=== PATIENT | male | born 1990 | race Caucasian/White ===

== ENCOUNTER 2024-09-14 10:47 | Outpatient (CLI) | payer BC, SELFPAY ==
--- NOTE | 2024-09-14 10:56 | XR_ITS ---
FINAL REPORT CLINICAL HISTORY: Rt hip pain, nki COMPARISON: None FINDINGS: AP and frog leg views of the right hip were obtained, with an AP view of the pelvis. There is no acute fracture or dislocation. Joint space is preserved. Soft tissues are unremarkable. IMPRESSION: No acute osseous abnormality of the right hip. Reviewed, Interpreted and Dictated by Yenni Lutz MD Transcribed by Shivani Martínez Authenticated and [facility]
--- NOTE | 2024-09-14 11:07 | XR_ITS ---
FINAL REPORT CLINICAL HISTORY: Rt shoulder pain, nki COMPARISON: None FINDINGS: 3 views of the right shoulder were obtained. There is no fracture or dislocation. Mild acromioclavicular degenerative changes present. Soft tissues are unremarkable. IMPRESSION: No acute osseous abnormality of the right shoulder. Mild acromioclavicular degenerative changes present. Reviewed, Interpreted and Dictated by Yenni Lutz MD Transcribed by Shivani Martínez Authenticated and [facility]
== END 2024-09-14 23:59 | disposition home or self-care (01) ==
LOC: RAD 10:52
PROVIDERS: PCP Nurse Practitioner; Visit Provider Nurse Practitioner
DX: M25.551 Pain in right hip (principal); M25.511 Pain in right shoulder
CPT/HCPCS: 73030; 73502

== ENCOUNTER → 2025-05-29 07:45 | Outpatient (CLI) | payer BC, SELFPAY ==
--- OUTSIDE RECORDS SUMMARY | 2025-05-29 07:47 | XMS_ITS | Data Portability ---
Author Organization [facility] Address [address] [place] [address] Assessment Encounter Date Assessment Date Assessment LastModified by Organization Details LastModified Time 05/09/2021 05/09/2021 Increasing losartan 50 mg to 100 mg p.o. daily for improved management of blood pressure today Continue BuSpar 10 mg twice daily for anxiety Administer flu vaccine today Encourage 3-month follow-up for check on the blood pressure Call or return to clinic sooner if needed [email or web address] Not available 05/09/2021 16:33:09 11/20/2021 11/20/2021 -Medications were reviewed and any necessary updates and renewals were made, patient instructed to complete as prescribed. -The potential side effects of medications were discussed. -Counseling was done on care goals and ways to prevent future hospitalizatio ns. -Further treatment per orders listed below. Not available 11/20/2021 15:23:42 Plan of Treatment Reminders Order Date Submit Date Provider Last Modified By Organization Details Last Modified Time Details Appointments None recorded. Lab lipid panel, serum 2023 024 [facility], [address], [address], [place], [address], 4 07:39:17 CMP, serum or plasma 2023 024 [facility], [address], [address] [address], [place], [address], 4 07:39:16 CBC w/ auto diff 2023 024 [facility], [address], [place] [address], [place], [address], 4 07:39:15 vitamin D, 25-hydroxy, total, serum 2023 024 [facility], [address], [place] [address], [place], [address], 4 07:39:19 HbA1c (hemoglobin A1c), blood 2023 024 [facility], [address], [address], [place], [address], 4 07:39:18 vitamin B12 + folate, serum or blood 2023 024 [facility], [address], [place] [address], [place], [address], 4 07:39:18 TSH + free T4, serum 2023 024 [facility], [address], [place] [address], [place], [address], 4 07:39:14 lipid panel, serum 2021 022 [facility], [address], [place] [address], [place], [address], 2 09:38:58 CMP, serum or plasma 2021 022 [facility], [address], [place] [address], [place], [address], 2 09:38:58 TSH + free T4, serum 2021 022 [facility], [address], [place] [address], [place], [address], 2 09:38:56 HbA1c (hemoglobin A1c), blood 2021 022 [facility], [address], [address], [place], [address], 2 09:38:59 CBC w/ auto diff 2021 [facility], [address], [address] [address], [place], [address], 2 09:38:57 Referral None recorded. Procedures None recorded. Surgeries None recorded. Imaging None recorded. Medication Orders atorvastati n 40 mg tablet [address] [facility], [address] [place] [address], [place], [id number], 4 10:46:18 omeprazole 40 mg capsule,del ayed release [address] [facility] [address] [facility], [address] [place] [address], [id number], 4 10:46:24 losartan 50 mg tablet [address] [facility] [address] [facility], [address] [place] [address], [id number], 4 10:46:21 sucralfate 1 gram tablet [address] [facility] [address] [facility], [address] [place] [address], [place], [place], [id number], 4 10:46:27 atorvastati n 40 mg tablet [address] [facility] [address] [facility], [address] [place] [address], [id number], 4 10:46:18 buspirone 10 mg tablet [email or web address] [place] [address] Pharmacy, [address] [place] [address], [place], [id number], 2 14:17:00 omeprazole 40 mg capsule,del ayed release [email or web address] [facility] [address] [facility], [address] [place] [address], NANDA Guzman, [id number], 4 10:46:24 losartan 50 mg tablet [email or web address] [facility], [address] [place] [address], NANDA Guzman, [id number], 4 10:46:21 omeprazole 40 mg capsule,del ayed release [address] [facility] [address] [facility], [address] [place] [address], NANDA Guzman, [id number], 4 10:46:24 Wellbutrin XL 150 mg 24 hr tablet, extended release [email or web address] [facility] [address] [facility], [address] [place], [place] [address] [place], [id number], 2 08:13:06 sucralfate 1 gram tablet [address] [facility] [address] [facility], [address] [place], [place] [address] [place], [id number], 4 10:46:27 atorvastati n 40 mg tablet [email or web address] [facility] [address] [facility], [address] [place], [place] [address] [place], [id number], 4 10:46:18 losartan 100 mg tablet 2020 021 [facility], [address] [place] [address], NANDA Guzman, [id number], 2 08:39:36 omeprazole 40 mg capsule,del ayed release 2020 021 [facility], [address] [place] [address] [place], [id number], 4 10:46:24 buspirone 10 mg tablet 2020 021 [email or web address], [address] [place] [address] [place], [id number], 2 14:17:00 citalopram 40 mg tablet 2020 021 [facility], [address] [place], [place] [address] [place], [id number], 2 14:19:39 Patient TargetsNo targets recorded. Patient Instructions Encounter Date Encounter Id Patient Instructions Last Modified By Organization Details Last Modified Time 05/09/2021 [id number] influenza (flu) vaccine: care instructions [email or web address] Not available 05/09/2021 16:30:24 11/20/2021 [id number] body mass index: care instructions Not available 11/20/2021 15:57:27 learning about healthy weight Not available 11/20/2021 15:57:27 Alert to contact office if symptoms return Take medications as directed Discussed risks and benefits; if develops any worsening, SI/HI, will seek tx mikel Not available 11/20/2021 16:02:22 01/22/2022 [id number] [facility]'s Guide to Preventive Health Care Not available 01/22/2022 08:34:55 learning about healthy weight Not available 01/22/2022 08:34:55 body mass index: care instructions Not available 01/22/2022 08:34:55 Congratulated on weight loss Will decrease losartan to 50 mg daily - having issues with fatigue Advised to spot check BP daily - If bp 140/upper 80's, call office, may need to increase to 75 mg daily Will call with results of labs when available Encouraged to maintain current healthy lifestyle habits - exercising at least 3 days per week and following low carb diet Not available 01/22/2022 08:40:01 05/26/2022 [id number] Advised to take medications as directed To call office for questions, concerns or issues. Not available 05/26/2022 14:26:20 02/08/2024 [id number] learning about healthy weight Not available 02/08/2024 14:00:04 body mass index: care instructions Not available 02/08/2024 14:00:04 Men's Guide to Preventive Health Care Not available 02/08/2024 14:00:04 Advised to continue current exercise regimen and dietary restrictions Will call with results of labs once available To call office for questions, concerns or issues Not available 02/08/2024 10:59:03 Reason for Referral None Reported. Results Created Date Observation Date Name Description Value Unit Range Abnormal Flag Note LastModifiedBy Organization Detail LastModifiedTime 01/23/2001/23/2022 TSH+F REE T4 TSH 1.340 uIU/m L 0.450- 4.500 Not Available [facility] ([facility]) [address] [place], [address], 01/23/2022 09:38:56 01/23/20 22 01/23/2022 TSH+F REE T4 T4,free(dire ct) 1.44 NG/dL 0.82-1 .77 Not Available [facility] ([facility]) [address] [place], [address], 01/23/2022 09:38:56 01/23/20 22 01/23/2022 CBC WITH DIFFE ANTONELLATI AL/PL ATELE T WBC 8.0 x10e3 /uL 3.4-10 .8 Not Available [facility] ([facility]) [address] [place], [address], 01/23/2022 09:38:57 01/23/20 22 01/23/2022 CBC WITH DIFFE RENTI AL/PL ATELE T RBC 4.96 x10e6 /uL 4.14-5 .80 Not Available [facility] ([facility]) [address] [facility], [place], [address], 01/23/2022 09:38:57 01/23/20 22 01/23/2022 CBC WITH DIFFE RENTI AL/PL ATELE T hemoglobin 14.7 g/dL 13.0-1 7.7 Not Available [facility] ([facility]) [address] [facility], [place], [address], 01/23/2022 09:38:57 01/23/20 22 01/23/2022 CBC WITH DIFFE RENTI AL/PL ATELE T hematocrit 44.6 % 37.5-5 1.0 Not Available [facility] ([facility]) [address] [facility], [place], [address], 01/23/2022 09:38:57 01/23/20 22 01/23/2022 CBC WITH DIFFE RENTI AL/PL ATELE T MCV 90 fL 79-97 Not Available [facility] ([facility]) [address] [place], [address], 01/23/2022 09:38:57 01/23/20 22 01/23/2022 CBC WITH DIFFE RENTI AL/PL ATELE T MCH 29.6 pg 26.6-3 3.0 Not Available [facility] ([facility]) [address] [place], [address], 01/23/2022 09:38:57 01/23/20 22 01/23/2022 CBC WITH DIFFE RENTI AL/PL ATELE T MCHC 33.0 g/dL 31.5-3 5.7 Not Available [facility] ([facility]) [address] [place], [address], 01/23/2022 09:38:57 01/23/20 22 01/23/2022 CBC WITH DIFFE RENTI AL/PL ATELE T RDW 13.4 % 11.6-1 5.4 Not Available [facility] ([facility]) [address] [facility], [place], [address], 01/23/2022 09:38:57 01/23/20 22 01/23/2022 CBC WITH DIFFE RENTI AL/PL ATELE T platelets 250 x10e3 /uL 150-45 0 Not Available [facility] ([facility]) [address] [facility], [place], [address], 01/23/2022 09:38:57 01/23/20 22 01/23/2022 CBC WITH DIFFE RENTI AL/PL ATELE T neutrophils 67 % not estab. Not Available [facility] ([facility]) [address] [facility], [place], [address], 01/23/2022 09:38:57 01/23/20 22 01/23/2022 CBC WITH DIFFE RENTI AL/PL ATELE T lymphs 24 % not estab. Not Available [facility] ([facility]) [address] [facility], [place], [address], 01/23/2022 09:38:57 01/23/20 22 01/23/2022 CBC WITH DIFFE RENTI AL/PL ATELE T monocytes 7 % not estab. Not Available [facility] ([facility]) [address] [facility], [place], [address], 01/23/2022 09:38:57 01/23/20 22 01/23/2022 CBC WITH DIFFE RENTI AL/PL ATELE T eos 1 % not estab. Not Available [facility] ([facility]) [address] [facility], [place], [address], 01/23/2022 09:38:57 01/23/20 22 01/23/2022 CBC WITH DIFFE RENTI AL/PL ATELE T basos 1 % not estab. 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 0 Not Available [facility] ([facility]) [address] [facility], [place], [address], 01/23/2022 09:38:57 01/23/20 22 01/23/2022 CBC WITH DIFFE RENTI AL/PL ATELE T lymphs (absolute) 1.9 x10e3 /uL 0.7-3. 1 Not Available [facility] ([facility]) [address] [place], [address], 01/23/2022 09:38:57 01/23/20 22 01/23/2022 CBC WITH DIFFE RENTI AL/PL ATELE T monocytes(ab solute) 0.5 x10e3 /uL 0.1-0. 9 Not Available [facility] ([facility]) [address] [place], [address], 01/23/2022 09:38:57 01/23/20 22 01/23/2022 CBC WITH DIFFE RENTI AL/PL ATELE T eos (absolute) 0.1 x10e3 /uL 0.0-0. 4 Not Available [facility] ([facility]) [address] [place], [address], 01/23/2022 09:38:57 01/23/20 22 01/23/2022 CBC WITH DIFFE RENTI AL/PL ATELE T baso (absolute) 0.1 x10e3 /uL 0.0-0. 2 Not Available [facility] ([facility]) [address] [facility], [place], [address], 01/23/2022 09:38:57 01/23/20 22 01/23/2022 CBC WITH DIFFE RENTI AL/PL ATELE T immature granulocytes 0 % not estab. Not Available [facility] ([facility]) [address] [facility], [place], [address], 01/23/2022 09:38:57 01/23/20 22 01/23/2022 CBC WITH DIFFE RENTI AL/PL ATELE T immature grans (abs) 0.0 x10e3 /uL 0.0-0. 1 Not Available [facility] ([facility]) [address] [facility], [place], [address], 01/23/2022 09:38:57 01/23/20 22 01/23/2022 CBC WITH DIFFE RENTI AL/PL ATELE T NRBC [employer]WORK SUPERVISOR Not Available [facility] ([facility]) [address] [facility], [place], [address], 01/23/2022 09:38:57 01/23/20 22 01/23/2022 CBC WITH DIFFE RENTI AL/PL ATELE T hematology comments: STONEWORK SUPERVISOR Not Available [facility] ([facility]) [address] [place], [address], 01/23/2022 09:38:57 01/23/20 22 01/23/2022 COMP. METAB OLIC PANEL (14) glucose 74 mg/dL 65-99 Not Available [facility] ([facility]) [address] [place], [address], 01/23/2022 09:38:58 01/23/20 22 01/23/2022 COMP. METAB OLIC PANEL (14) BUN 12 mg/dL 6-20 Not Available [facility] ([facility]) [address] [place], [address], 01/23/2022 09:38:58 01/23/20 22 01/23/2022 COMP. METAB OLIC PANEL (14) creatinine 0.91 mg/dL 0.76-1 .27 Not Available [facility] ([facility]) [address] [place], [address], 01/23/2022 09:38:58 01/23/20 22 01/23/2022 COMP. METAB OLIC PANEL (14) eGFR 116 mL/mi n/1.7 3 >59 Not Available [facility] ([facility]) [address] [place], [address], 01/23/2022 09:38:58 01/23/20 22 01/23/2022 COMP. METAB OLIC PANEL (14) BUN/creatini ne ratio 13 9-20 Not Available [facility] ([facility]) [address] [place], [address], 01/23/2022 09:38:58 01/23/20 22 01/23/2022 COMP. METAB OLIC PANEL (14) sodium 140 mmol/ L 134-14 4 Not Available [facility] ([facility]) [address] [place], [address], 01/23/2022 09:38:58 01/23/20 22 01/23/2022 COMP. METAB OLIC PANEL (14) potassium 4.3 mmol/ L 3.5-5. 2 Not Available [facility] ([facility]) [address] [place], [address], 01/23/2022 09:38:58 01/23/20 22 01/23/2022 COMP. METAB OLIC PANEL (14) chloride 100 mmol/ L 96-106 Not Available [facility] ([facility]) [address] [place], [address], 01/23/2022 09:38:58 01/23/20 22 01/23/2022 COMP. METAB OLIC PANEL (14) carbon dioxide, total 23 mmol/ L 20-29 Not Available [facility] ([facility]) [address] [facility], [place], [address], 01/23/2022 09:38:58 01/23/20 22 01/23/2022 COMP. METAB OLIC PANEL (14) calcium 9.0 mg/dL 8.7-10 .2 Not Available [facility] ([facility]) [address] [facility], [place], [address], 01/23/2022 09:38:58 01/23/20 22 01/23/2022 COMP. METAB OLIC PANEL (14) protein, total 6.5 g/dL 6.0-8. 5 Not Available [facility] ([facility]) [address] [facility], [place], [address], 01/23/2022 09:38:58 01/23/20 22 01/23/2022 COMP. METAB OLIC PANEL (14) albumin 4.3 g/dL 4.1-5. 2 Not Available [facility] ([facility]) [address] [facility], [place], [address], 01/23/2022 09:38:58 01/23/20 22 01/23/2022 COMP. METAB OLIC PANEL (14) globulin, total 2.2 g/dL 1.5-4. 5 Not Available [facility] ([facility]) [address] [facility], [place], [address], 01/23/2022 09:38:58 01/23/20 22 01/23/2022 COMP. METAB OLIC PANEL (14) A/G ratio 2.0 1.2-2. 2 Not Available [facility] ([facility]) [address] [facility], [place], [address], 01/23/2022 09:38:58 01/23/20 22 01/23/2022 COMP. METAB OLIC PANEL (14) bilirubin, total 1.2 mg/dL 0.0-1. 2 Not Available [facility] ([facility]) [address] [place], [address], 01/23/2022 09:38:58 01/23/20 22 01/23/2022 COMP. METAB OLIC PANEL (14) alkaline phosphatase 67 IU/L 44-121 Not Available [facility] ([facility]) [address] [place], [address], 01/23/2022 09:38:58 01/23/20 22 01/23/2022 COMP. METAB OLIC PANEL (14) AST (SGOT) 25 IU/L 0-40 Not Available [facility] ([facility]) [address] [place], [address], 01/23/2022 09:38:58 01/23/20 22 01/23/2022 COMP. METAB OLIC PANEL (14) ALT (SGPT) 21 IU/L 0-44 Not Available [facility] ([facility]) [address] [place], [address], 01/23/2022 09:38:58 01/23/20 22 01/23/2022 LIPID PANEL cholesterol, total 105 mg/dL 100-19 9 Not Available [facility] ([facility]) [address] [place], [address], 01/23/2022 09:38:58 01/23/20 22 01/23/2022 LIPID PANEL triglyceride s 66 mg/dL 0-149 Not Available [facility] ([facility]) [address] [place], [address], 01/23/2022 09:38:58 01/23/20 22 01/23/2022 LIPID PANEL HDL cholesterol 32 mg/dL >39 below low normal Not Available [facility] ([facility]) [address] [place], [address], 01/23/2022 09:38:58 01/23/20 22 01/23/2022 LIPID PANEL VLDL cholesterol chinmay 14 mg/dL 5-40 Not Available [facility] ([facility]) [address] [place], [address], 01/23/2022 09:38:58 01/23/20 22 01/23/2022 LIPID PANEL LDL chol calc ([facility]) 59 mg/dL 0-99 Not Available [facility] ([facility]) [address] [place], [address], 01/23/2022 09:38:58 01/23/20 22 01/23/2022 LIPID PANEL comment: [employer]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 6 Predi abete s: 5.7 - 6.4 Diabe stan: >6.4 Glyce tony contr ol for adult s with diabe stan: <7.0 Not Available [facility] ([facility]) [address] [place], [address], 01/23/2022 09:38:59 02/08/20 24 02/09/2024 TSH+F REE T4 TSH 2.070 uIU/m L 0.450- 4.500 normal Not Available [facility] ([facility]) [address] [place], [address], 02/09/2024 07:39:14 02/08/2002/09/2024 TSH+F REE T4 T4,free(dire ct) 1.30 NG/dL 0.82-1 .77 normal Not Available [facility] ([facility]) [address] [place], [address], 02/09/2024 07:39:14 02/08/20 24 02/09/2024 CBC WITH DIFFE RENTI AL/PL ATELE T WBC 5.6 x10e3 /uL 3.4-10 .8 normal Not Available [facility] ([facility]) [address] [facility], [place], [address], 02/09/2024 07:39:15 02/08/20 24 02/09/2024 CBC WITH DIFFE RENTI AL/PL ATELE T RBC 4.49 x10e6 /uL 4.14-5 .80 normal Not Available [facility] ([facility]) [address] [place], [address], 02/09/2024 07:39:15 02/08/20 24 02/09/2024 CBC WITH DIFFE RENTI AL/PL ATELE T hemoglobin 14.1 g/dL 13.0-1 7.7 normal Not Available [facility] ([facility]) [address] [facility], [place], [address], 02/09/2024 07:39:15 02/08/20 24 02/09/2024 CBC WITH DIFFE RENTI AL/PL ATELE T hematocrit 43.0 % 37.5-5 1.0 normal Not Available [facility] ([facility]) [address] [place], [address], 02/09/2024 07:39:15 02/08/20 24 02/09/2024 CBC WITH DIFFE RENTI AL/PL ATELE T MCV 96 fL 79-97 normal Not Available [facility] ([facility]) [address] [place], [address], 02/09/2024 07:39:15 02/08/20 24 02/09/2024 CBC WITH DIFFE RENTI AL/PL ATELE T MCH 31.4 pg 26.6-3 3.0 normal Not Available [facility] ([facility]) [address] [place], [address], 02/09/2024 07:39:15 02/08/20 24 02/09/2024 CBC WITH DIFFE RENTI AL/PL ATELE T MCHC 32.8 g/dL 31.5-3 5.7 normal Not Available [facility] ([facility]) [address] [facility], [place], [address], 02/09/2024 07:39:15 02/08/20 24 02/09/2024 CBC WITH DIFFE RENTI AL/PL ATELE T RDW 12.5 % 11.6-1 5.4 Not Available [facility] ([facility]) [address] [facility], [place], [address], 02/09/2024 07:39:15 02/08/20 24 02/09/2024 CBC WITH DIFFE RENTI AL/PL ATELE T platelets 188 x10e3 /uL 150-45 0 normal Not Available [facility] ([facility]) [address] [facility], [place], [address], 02/09/2024 07:39:15 02/08/20 24 02/09/2024 CBC WITH DIFFE RENTI AL/PL ATELE T neutrophils 46 % not estab. normal Not Available [facility] ([facility]) [address] [facility], [place], [address], 02/09/2024 07:39:15 02/08/20 24 02/09/2024 CBC WITH DIFFE RENTI AL/PL ATELE T lymphs 43 % not estab. normal Not Available [facility] ([facility]) [address] [facility], [place], [address], 02/09/2024 07:39:15 02/08/20 24 02/09/2024 CBC WITH DIFFE RENTI AL/PL ATELE T monocytes 7 % not estab. normal Not Available [facility] ([facility]) [address] [facility], [place], [address], 02/09/2024 07:39:15 02/08/20 24 02/09/2024 CBC WITH DIFFE RENTI AL/PL ATELE T eos 3 % not estab. normal Not Available [facility] ([facility]) [address] [place], [address], 02/09/2024 07:39:15 02/08/20 24 02/09/2024 CBC WITH DIFFE RENTI AL/PL ATELE T basos 1 % not estab. normal Not Available [facility] ([facility]) [address] [facility], [place], [address], 02/09/2024 07:39:15 02/08/20 24 02/09/2024 CBC WITH DIFFE RENTI AL/PL ATELE T immature cells STONEWORK SUPERVISOR Not Available [facility] ([facility]) [address] [place], [address], 02/09/2024 07:39:15 02/08/20 24 02/09/2024 CBC WITH DIFFE RENTI AL/PL ATELE T neutrophils (absolute) 2.6 x10e3 /uL 1.4-7. 0 normal Not Available [facility] ([facility]) [address] [place], [address], 02/09/2024 07:39:15 02/08/20 24 02/09/2024 CBC WITH DIFFE RENTI AL/PL ATELE T lymphs (absolute) 2.4 x10e3 /uL 0.7-3. 1 normal Not Available [facility] ([facility]) [address] [place], [address], 02/09/2024 07:39:15 02/08/20 24 02/09/2024 CBC WITH DIFFE RENTI AL/PL ATELE T monocytes(ab solute) 0.4 x10e3 /uL 0.1-0. 9 normal Not Available [facility] ([facility]) [address] [place], [address], 02/09/2024 07:39:15 02/08/20 24 02/09/2024 CBC WITH DIFFE RENTI AL/PL ATELE T eos (absolute) 0.1 x10e3 /uL 0.0-0. 4 normal Not Available [facility] ([facility]) [address] [facility], [place], [address], 02/09/2024 07:39:15 02/08/20 24 02/09/2024 CBC WITH DIFFE RENTI AL/PL ATELE T baso (absolute) 0.1 x10e3 /uL 0.0-0. 2 normal Not Available [facility] ([facility]) [address] [facility], [place], [address], 02/09/2024 07:39:15 02/08/20 24 02/09/2024 CBC WITH DIFFE RENTI AL/PL ATELE T immature granulocytes 0 % not estab. Not Available [facility] ([facility]) [address] [facility], [place], [address], 02/09/2024 07:39:15 02/08/20 24 02/09/2024 CBC WITH DIFFE RENTI AL/PL ATELE T immature grans (abs) 0.0 x10e3 /uL 0.0-0. 1 Not Available [facility] ([facility]) [address] [facility], [place], [address], 02/09/2024 07:39:15 02/08/20 24 02/09/2024 CBC WITH DIFFE RENTI AL/PL ATELE T NRBC [employer]WORK SUPERVISOR Not Available [facility] ([facility]) [address] [facility], [place], [address], 02/09/2024 07:39:15 02/08/20 24 02/09/2024 CBC WITH DIFFE RENTI AL/PL ATELE T hematology comments: STONEWORK SUPERVISOR Not Available [facility] ([facility]) [address] [facility], [place], [address], 02/09/2024 07:39:15 02/08/20 24 02/09/2024 COMP. METAB OLIC PANEL (14) glucose 76 mg/dL 70-99 normal Not Available [facility] ([facility]) [address] [place], [address], 02/09/2024 07:39:16 02/08/20 24 02/09/2024 COMP. METAB OLIC PANEL (14) BUN 13 mg/dL 6-20 normal Not Available [facility] ([facility]) [address] [place], [address], 02/09/2024 07:39:16 02/08/20 24 02/09/2024 COMP. METAB OLIC PANEL (14) creatinine 0.94 mg/dL 0.76-1 .27 normal Not Available [facility] ([facility]) [address] [place], [address], 02/09/2024 07:39:16 02/08/20 24 02/09/2024 COMP. METAB OLIC PANEL (14) eGFR 110 mL/mi n/1.7 3 >59 normal Not Available [facility] ([facility]) [address] [place], [address], 02/09/2024 07:39:16 02/08/20 24 02/09/2024 COMP. METAB OLIC PANEL (14) BUN/creatini ne ratio 14 9-20 normal Not Available [facility] ([facility]) [address] [place], [address], 02/09/2024 07:39:16 02/08/20 24 02/09/2024 COMP. METAB OLIC PANEL (14) sodium 140 mmol/ L 134-14 4 normal Not Available [facility] ([facility]) [address] [place], [address], 02/09/2024 07:39:16 02/08/20 24 02/09/2024 COMP. METAB OLIC PANEL (14) potassium 4.3 mmol/ L 3.5-5. 2 normal Not Available [facility] ([facility]) [address] [place], [address], 02/09/2024 07:39:16 02/08/20 24 02/09/2024 COMP. METAB OLIC PANEL (14) chloride 101 mmol/ L 96-106 normal Not Available [facility] ([facility]) [address] [place], [address], 02/09/2024 07:39:16 02/08/20 24 02/09/2024 COMP. METAB OLIC PANEL (14) carbon dioxide, total 22 mmol/ L 20-29 normal Not Available [facility] ([facility]) [address] [place], [address], 02/09/2024 07:39:16 02/08/20 24 02/09/2024 COMP. METAB OLIC PANEL (14) calcium 9.2 mg/dL 8.7-10 .2 normal Not Available [facility] ([facility]) [address] [place], [address], 02/09/2024 07:39:16 02/08/20 24 02/09/2024 COMP. METAB OLIC PANEL (14) protein, total 6.8 g/dL 6.0-8. 5 normal Not Available [facility] ([facility]) [address] [place], [address], 02/09/2024 07:39:16 02/08/20 24 02/09/2024 COMP. METAB OLIC PANEL (14) albumin 4.6 g/dL 4.1-5. 1 normal Not Available [facility] ([facility] [address] [place], [address], 02/09/2024 07:39:16 02/08/20 24 02/09/2024 COMP. METAB OLIC PANEL (14) globulin, total 2.2 g/dL 1.5-4. 5 Not Available [facility] ([facility]) [address] [facility], [place], [address], 02/09/2024 07:39:16 02/08/20 24 02/09/2024 COMP. METAB OLIC PANEL (14) bilirubin, total 1.4 mg/dL 0.0-1. 2 above high normal Not Available [facility] ([facility]) [address] [place], [address], 02/09/2024 07:39:16 02/08/20 24 02/09/2024 COMP. METAB OLIC PANEL (14) alkaline phosphatase 50 IU/L 44-121 normal Not Available [facility] ([facility]) [address] [facility], [place], [address], 02/09/2024 07:39:16 02/08/20 24 02/09/2024 COMP. METAB OLIC PANEL (14) AST (SGOT) 38 IU/L 0-40 normal Not Available [facility] ([facility]) [address] [facility], [place], [address], 02/09/2024 07:39:16 02/08/20 24 02/09/2024 COMP. METAB OLIC PANEL (14) ALT (SGPT) 32 IU/L 0-44 normal Not Available [facility] ([facility]) [address] [facility], [place], [address], 02/09/2024 07:39:16 02/08/20 24 02/09/2024 LIPID PANEL cholesterol, total 172 mg/dL 100-19 9 normal Not Available [facility] ([facility]) [address] [place], [address], 02/09/2024 07:39:17 02/08/20 24 02/09/2024 LIPID PANEL triglyceride s 40 mg/dL 0-149 normal Not Available [facility] ([facility]) [address] [place], [address], 02/09/2024 07:39:17 02/08/20 24 02/09/2024 LIPID PANEL HDL cholesterol 55 mg/dL >39 normal Not Available [facility] ([facility]) [address] [place], [address], 02/09/2024 07:39:17 02/08/20 24 02/09/2024 LIPID PANEL VLDL cholesterol chinmay 8 mg/dL 5-40 Not Available [facility] ([facility]) [address] [place], [address], 02/09/2024 07:39:17 02/08/20 24 02/09/2024 LIPID PANEL LDL chol calc ([facility]) 109 mg/dL 0-99 above high normal Not Available [facility] ([facility]) [address] [place], [address], 02/09/2024 07:39:17 02/08/20 24 02/09/2024 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 Not Available [facility] ([facility]) [address] [place], [address], 02/09/2024 07:39:17 02/08/20 24 02/09/2024 HEMOG LOBIN A1C hemoglobin A1C 5.1 % 4.8-5. 6 normal Predi abete s: 5.7 - 6.4 Diabe stan: >6.4 Glyce tony contr ol for adult s with diabe stan: <7.0 Not Available [facility] ([facility]) [address] [facility], [place], [address], 02/09/2024 07:39:18 02/08/20 24 02/09/2024 VITAM IN D, 25-HY DROXY vitamin D, 25-hydroxy 78.7 NG/mL 30.0-1 00.0 Vitam in D defic iency has been defin ed by the Insti tute of Medic ine and an Endoc rine Socie ty pract ice guide line as a level of serum 25-OH vitam in D less than 20 ng/mL (1,2) . The Endoc rine Socie ty went on to furth er defin e vitam in D insuf ficie ncy as a level betwe en 21 and 29 ng/mL (2). 1. IOM (Inst itute of Medic ine). 2009. Dieta ry refer ence intak es for calci um and D. Arlene smith DC: The Natio nal [facility] Press . 2. Atilio springer MF, Shivam boo NC, Hyacinth off-F lissettear i ARDON, et al. Evalu ation , treat ment, and preve ntion of vitam in D defic iency : an Endoc rine Socie ty clini chinmay pract ice guide line. JCEM. 2010; 96(7) :1911 -30. Not Available [facility] ([facility]) [address] [facility], [place], [address], 02/09/2024 07:39:19 Result Notes None recorded. Problems Name Problem SNOMED Code Status Onset Date Resolution Date Notes Provider Name and Address Organization Details Recorded Time Hypertensi ve disorder 59715688 Active 2016 NANDA Sloan - [facility] 7 14:05:55 Epigastric pain 99604816 Completed 201602/04/2019 NANDA Bonilla - [facility] 9 15:08:59 Chronic depression 970095197 Active 2017 Leta Rust null, [place] - [facility] 8 16:29:27 Gastroesop hageal reflux disease without esophagiti s 604669995 Active 2018 Crystal Brayan null, [place] - [facility] 9 15:09:30 Chronic anxiety 512871800 Active 2018 Leta Rust null[place] - [facility] 9 15:34:52 Mixed hyperlipid emia 175564478 Completed 201902/08/2024 Crystal Brayan null, [place] - [facility] 4 10:47:54 Gastric ulcer 777718724 Active 2021 Xuan Kidd, INFORMATION SYSTEMS AUDIT MANAGER [address], [place], [address] , [place] - [facility] 2 15:48:13 Mixed anxiety and depressive disorder 137265601 Active 2021 Xuan Kidd APRN [address], [place], [address] , [place] - [facility] 2 15:50:35 Essential hypertensi on 00340528 Active 2021 Xuan Kidd, INFORMATION SYSTEMS AUDIT MANAGER [address], [place], [address] , [place] - [facility] 2 08:31:27 Problem Notes None recorded. Procedures Surgical History Date Name Laterality Status Provider Name and Address Organization Details Recorded Time 11/21/19 22 Medication Reconcilliation completed Crystal Brayan [place] - [facility] 11/20/2021 15:23:42 02/03/20 20 Diastolic B/P greater than or equal to 90 mm Hg completed Crystal Brayan [place] - [facility] 02/03/2020 14:09:24 02/03/20 20 Systolic B/P greater than or equal to 140 mm Hg completed Crystal Brayan [place] - [facility] 02/03/2020 14:09:20 08/08/19 20 Diastolic B/P 80-89 mm Hg completed Crystal Brayan [place] - [facility] 08/08/2019 14:03:18 08/08/19 20 Systolic B/P greater than or equal to 140 mm Hg completed Crystal Brayan [place] - [facility] 08/08/2019 14:03:15 06/22/19 00 tonsilectomy/adeno ids completed Aniya House [place] - [facility] 02/19/2017 10:59:43 Imaging Results None recorded. Procedure Notes None recorded. Medical Equipment None Reported. Allergies Allergen ID Allergen Name Allergen Category Reaction Reaction Severity Criticality Documentation Date Start Date Code Code System Note Provider Name and Address Organization Details Recorded Time 835684 Wellbutri n medicatio n other Not available Not available 01/22/2022 56509 RxNorm suici disha Clarissa bray, [place] - [facility] 2 08:13:55 52716 Product containin g angiotens in-conver ting enzyme inhibitor (product) medicatio n cough Not available Not available 04/16/2017 76724 009 SNOMED Leta Rust [facility], [place] - [facility] 7 14:36:40 Medications Name Sig Start Date Stop Date Status Note LastModified by Organization Details LastModified Time losartan 50 mg tablet TAKE ONE TABLET BY MOUTH ONCE A DAY 02/07 completed Not Available Not Available Not Available atorvasta tin 40 mg tablet TAKE ONE TABLET BY MOUTH ONCE A DAY 02/07 completed Not Available Not Available Not Available citalopra m 40 mg tablet TAKE ONE TABLET BY MOUTH ONCE A DAY 05/26 completed Not Available Not Available Not Available citalopra m 10 mg tablet TAKE ONE TABLET BY MOUTH EVERY DAY 02/18 completed Not Available Not Available Not Available sucralfat e 1 gram tablet TAKE 1 TABLET BY MOUTH EVERY 4 HOURS ON AN EMPTY STOMACH ON WAKING AND AT BEDTIME as needed 02/07 completed Not Available Not Available Not Available promethaz ine 12.5 mg tablet TAKE 1 TABLET BY MOUTH EVERY 4 TO 6 HOURS 01/21 completed Not Available Not Available Not Available Phenergan 25 mg tablet take 1 tablet (25 mg) by oral route every 6 hours as needed for 3 days 02/25 completed Phenerga n Oral Tablet 25 mg;Recor ded Status: Recorded on: 06/04/20 09 3:30PM;D iscontin ued Status: Disconti nued on: 02/26/20 13 12:55PM; User: Vannessa Oreilly on: 06/07/20 09;Print ed: 06/04/20 Not Available Not Available Not Available Excedrin Migraine 250 mg-250 mg-65 mg tablet take 1 tablet by oral route 4 times a day for 14 days 03/11 completed Excedrin Migraine Oral tablet 250-250- 65 mg;Recor ded Status: Recorded on: 02/26/20 13 1:18PM;U ser: grayn;Es t. Completi on: 03/11/20 13;Print ed: 02/26/20 Not Available Not Available Not Available omeprazol e 40 mg capsule,d elayed release TAKE ONE CAPSULE BY MOUTH EVERY DAY 02/07 completed Not Available Not Available Not Available citalopra m 20 mg tablet TAKE ONE TABLET BY MOUTH EVERY DAY 02/02 completed Not Available Not Available Not Available buspirone 10 mg tablet TAKE ONE TABLET BY MOUTH 2 TIMES A DAY 05/26 completed Not Available Not Available Not Available losartan 25 mg tablet TAKE ONE TABLET BY MOUTH EVERY DAY 02/02 completed Not Available Not Available Not Available Zofran ODT 8 mg disintegr ating tablet Place 1 tablet every 8 hours by translin gual route as needed for 2 days. 02/04 completed Not Available Not Available Not Available hydroxyzi ne HCl 25 mg tablet take 1/2-1 tab po twice daily as needed. 01/24 completed Not Available Not Available Not Available losartan 100 mg tablet TAKE ONE TABLET BY MOUTH ONCE A DAY 01/22 completed Not Available Not Available Not Available bupropion HCl XL 150 mg 24 hr tablet, extended release Take 1 tablet every day by oral route. 01/22 completed Not Available Not Available Not Available Vitals Date Recorded Body height Body mass index (BMI) Body weight Heart rate Oxygen saturation Respiratory rate Pain severity - 0-10 verbal numeric rating [Score] - Reported Systolic And Diastolic Provider Name and Address Organization Details Last Updated DateTime 2 177.8 cm 42.2 kg/m2 283451. 16 g 86 /min 97 % 18 /min 0 132/84 mm[Hg] Crystal Brayan [place] - [facility] 2 15:27:44 Date Recorded Body height Body mass index (BMI) Body weight Heart rate Oxygen saturation Respiratory rate Pain severity - 0-10 verbal numeric rating [Score] - Reported Systolic And Diastolic Provider Name and Address Organization Details Last Updated DateTime 2 177.8 cm 37.7 kg/m2 787233. 79 g 80 /min 98 % 18 /min 0 122/70 mm[Hg] [facility] - [facility] 2 08:12:24 Date Recorded Body height Body mass index (BMI) Body weight Heart rate Oxygen saturation Respiratory rate Pain severity - 0-10 verbal numeric rating [Score] - Reported Systolic And Diastolic Provider Name and Address Organization Details Last Updated DateTime 4 177.8 cm 30.1 kg/m2 39251.4 g 78 /min 98 % 18 /min 0 122/80 mm[Hg] Soldsie Brayan [place] - [facility] 4 10:48:59 Date Recorded Body height Body mass index (BMI) Body weight Heart rate Oxygen saturation Respiratory rate Pain severity - 0-10 verbal numeric rating [Score] - Reported Systolic And Diastolic Provider Name and Address Organization Details Last Updated DateTime 1 177.8 cm 48.2 kg/m2 949359. 04 g 88 /min 96 % 18 /min 0 142/86 mm[Hg] TLM Com [facility] 1 16:12:15 Date Recorded Body height Body mass index (BMI) Body weight Body temperature Heart rate Oxygen saturation Respiratory rate Pain severity - 0-10 verbal numeric rating [Score] - Reported Systolic And Diastolic Provider Name and Address Organization Details Last Updated DateTime 2 177.8 cm 33.4 kg/m2 774033. 23 g 98.3 [degF] 71 /min 97 % 18 /min 0 134/84 mm[Hg] Xuan Christie [place] - [facility] 2 14:15:02 Social History Question Answer Notes LastModified by Organizat ion Details LastModified Time Tobacco Smoking Status Never Smoker Aniya House katarina [place] - [facility] 02/19/2017 10:58:21 Able To Swim? Yes [email or web address] Informati on not available 02/19/2017 Do You Have An Advance Directive? No [email or web address] Information not available 02/19/2017 Do You Wear A Helmet When Biking? Yes [email or web address] Information not available 02/19/2017 Are You Blind Or Do You Have Difficulty Seeing? No [email or web address] Information not available 02/19/2017 What Is Your Level Of Caffeine Consumption? Occasional [email or web address] Information not available 02/19/2017 Are You Deaf Or Do You Have Serious Difficulty Hearing? No [email or web address] Information not available 02/19/2017 What Type Of Diet Are You Following? REGULAR [email or web address] Information not available 02/19/2017 Which Illicit Or Recreational Drugs Have You Used? Denies [email or web address] Information not available 02/19/2017 Swimming/diving Yes [email or web address] Informa tion not available 02/19/2017 Hard Of Hearing Or Deaf In One Or Both Ears? No [email or web address] Information not available 02/19/2017 Legally Blind In One Or Both Eyes? No [email or web address] Information no t available 02/19/2017 Live Alone Or With Others? With Others [email or web address] Information not available 02/19/2017 What Was The Date Of Your Most Recent Tobacco Screening? 02/08/2024 Information not available 02/08/2024 How Many Children Do You Have? 0 [email or web address] Information not available 02/19/2017 What Is Your Relationship Status? Single [email or web address] Information not available 02/19/2017 Seat Belts Used Routinely Yes [email or web address] Information not available 02/19/2017 Are You Sexually Active? Yes Information not available 02/08/2024 Smoke Alarm In Home Yes [email or web address] Information not available 02/19/2017 Do You Use Sunscreen Routinely? Yes [email or web address] Information not available 02/19/2017 Has Tobacco Cessation Counseling Been Provided? Yes Information not available 01/22/2022 On What Date Was Tobacco Cessation Counseling Provided? 02/08/2024 Information not available 02/08/2024 Do You Have Difficulty Walking Or Climbing Stairs? No [email or web address] Information not available 02/19/2017 Sex: Male Functional Status Question Answer Note LastModified by Organizat ion Details LastModified Time Do you use any illicit or recreational drugs? No Information not available 01/22/2022 Do you or have you ever used any other forms of tobacco or nicotine? No Information not available 02/08/2024 What is your level of alcohol consumption? None [email or web address] Information not available 02/19/2017 Are you currently employed? No [email or web address] Information not available 02/19/2017 Do you have difficulty doing errands alone? No [email or web address] Information not available 02/19/2017 Are you able to care for yourself independently? Yes [email or web address] Information not available 02/19/2017 Do you have difficulty dressing, bathing, grooming, or toileting? No [email or web address] Information not available 02/19/2017 What is your exercise level? None [email or web address] Information not available 02/19/2017 Mental Status Question Answer Note LastModified by Organization D etails LastModified Time Do you have difficulty concentrating, remembering or making decisions? No [email or web address] Information no t available 02/19/2017 Family History Relationship Description Onset Age of this Age Resolved Age Notes LastModified by Organization Details LastModified Time Father No current problems or disability [email or web address] Not available 10:58:14 Mother No current problems or disability Not available 10:58:14 Medical History No medical history recorded. Immunizations Vaccine Type Date Status Note Provider Nam e and Address Organization Details Recorded Time Influenza, split virus, quadrivalent, preservative 0 completed Crystal Brayan null, [place] - [facility] 08/08/2019 14:53:37 Influenza, split virus, quadrivalent, preservative 7 completed Not Available [facility] 07/09/2019 03:54:42 Tdap 7 completed Not Available [facility] 07/09/2019 03:54:43 Influenza, split virus, quadrivalent, preservative 1 completed Crystal Baryan null[place] - [facility] 05/09/2021 16:45:46 Influenza, split virus, quadrivalent, preservative 9 completed Not Available [facility] 07/09/2019 03:55:33 varicella 0 completed Crystal Brayan null[place] - [facility] 02/08/2024 10:44:19 Td (adult), 2 Lf tetanus toxoid, preservative free, adsorbed 5 completed Crystal Brayan [place] - [facility] 02/08/2024 10:44:19 Hep B, adolescent or pediatric 04/12/200 1 completed Crystal Brayan null[place] - [facility] 02/08/2024 10:44:19 Hep B, adolescent or pediatric 0 completed NANDA Bonilla [facility] 02/08/2024 10:44:19 Past Encounters Encounter ID Performer Location Encounter Start Date Encounter Closed Date Diagnosis/Indication Diagnosis SNOMED-CT Code Diagnosis ICD10 Code Diagnosis IMO Codes Diagnosis Note [id number] Lteanick Rust [address] [place] [address] 02/19/2017 10:08:24 02/19/2017 11:41:59 Body mass index 40+ - severely obese 696046644 Z68.42 Gastroesop hageal reflux disease 512019669 K21.9 [id number] Letanick Rust [address] [place] [address] 03/19/2017 14:19:54 03/19/2017 15:44:12 Benign hypertension 63112201 I10 Administra tion of influenza vaccine 76707310 Z23 Body mass index 40+ - severely obese 534657972 Z68.42 Vaccination required 170 554512 Z28.3 Epigastric pain 48077175 R10.13 [id number] Leta Rust [address] [place] [address] 04/16/2017 13:45:56 04/16/2017 15:00:30 Benign hypertension 07348288 I10 Gastroesop hageal reflux disease 938247983 K21.9 Anxiety 61362312 F41.9 [id number] Leta Rust [address] [place] [address] 05/18/2017 13:19:38 05/18/2017 14:36:30 Hypertensive disorder 68371146 I10 Anxiety 74684475 F41.9 Depressive disorder 3548 9007 F32.9 Epigastric pain 53495558 R10.13 [id number] Leta Rust [address] [place] [address] 12/14/2017 16:08:35 12/14/2017 16:54:27 Epigastric pain 88305567 R10.13 Hypertensive disorder 38 796872 I10 Chronic depression 14060 0009 F34.1 Body mass index 40+ - severely obese 259579863 Z68.42 Anxiety 76235954 F41.9 [id number] Ree Swan[address] [place] [address] 02/18/2018 14:22:11 02/18/2018 14:45:06 Nausea 406882660 R11.0 Diarrhea 92756605 R19.7 [id number] Letanick Rust[address] [place] [address] 07/09/2018 13:12:14 07/09/2018 13:44:44 Chronic depression 030772176 F34.1 Hypertensive disorder 38 033945 I10 Administra tion of influenza vaccine 16578415 Z23 Body mass index 40+ - severely obese 180391674 Z68.42 Anxiety 19143386 F41.9 Epigastric pain 49296980 R10.13 [id number] Letanick Rust[address] [place] [address] 02/04/2019 15:00:37 02/04/2019 15:39:32 Hypertensive disorder 80710532 I10 Chronic depression 13932 0009 F34.1 Gastroesop hageal reflux disease without esophagitis 385971905 K21.9 Screening for cardiovascular system disease 982654880 Z13.6 Chronic anxiety 54802360 9 F41.9 [id number] Letanick Rust[address] [place] [address] 08/08/2019 13:45:48 08/08/2019 14:51:29 Chronic anxiety 816581525 F41.9 Gastroesop hageal reflux disease without esophagitis 042662908 K21.9 Chronic depression 94387 0009 F34.1 Hypertensive disorder 38 853391 I10 Administra tion of influenza vaccine 38584809 Z23 [id number] Leta Rust[address] [place] [address] 02/03/2020 13:54:47 02/03/2020 15:00:58 Hypertensive disorder 15326988 I10 Gastroesop hageal reflux disease without esophagitis 749827433 K21.9 Chronic depression 28005 0009 F34.1 Chronic anxiety 05784889 9 F41.9 Screening for cardiovascular system disease 734209682 Z13.6 Body mass index 40+ - severely obese 587131273 Z68.42 [id number] Leta Rust[address] [place] [address] 01/24/2021 13:53:52 01/24/2021 14:37:01 Mixed hyperlipidemia 577202782 E78.2 Chronic anxiety 34042871 9 F41.9 Gastroesop hageal reflux disease without esophagitis 735067729 K21.9 Chronic depression 90486 0009 F34.1 Hypertensive disorder 38 043794 I10 Body mass index 40+ - severely obese 864639932 Z68.42 [id number] Leta Rust[address] [place] [address] 05/09/2021 16:03:04 05/09/2021 16:49:38 Mixed hyperlipidemia 339901631 E78.2 Chronic anxiety 80996538 9 F41.9 Gastroesop hageal reflux disease without esophagitis 768085880 K21.9 Chronic depression 50651 0009 F34.1 Hypertensive disorder 38 623136 I10 Administra tion of influenza vaccine 19611405 Z23 [id number] Xuan Kidd [address] [place] [address] 11/20/2021 15:16:15 11/20/2021 16:03:23 Body mass index 40+ - severely obese 510615275 Z68.41 Morbid obesity 993099919 E66.01 Gastric ulcer 350174599 K25.9 Gastroesop hageal reflux disease without esophagitis 761817742 K21.9 Mixed anxi ety and depressive disorder 549504225 F41.8 stop citalopram and start wellbutrin [id number] Xuan Kidd [address] [place] [address] 01/22/2022 08:03:07 01/22/2022 08:48:06 General examination of patient 114795277 Z00.00 Hyperlipid emia screening 709113364 Z13.220 Endocrine/ metabolic screening 423589812 Z13.228 Exercises education, guidance, and counseling 321711452 Z71.82 Dietary ma nagement surveillance 187673500 Z71.3 Body mass index 30+ - obesity 516490572 Z68.37 Obesity 756274784 E66.3 Essential hypertension 49290680 I10 Gastroesop hageal reflux disease without esophagitis 517605753 K21.9 Mixed hyperlipidemia 267 963511 E78.2 Chronic anxiety 58120643 9 F41.9 [id number] Xuan Kidd [address] [place] [address] 05/26/2022 14:07:14 05/26/2022 14:28:42 Mixed anxiety and depressive disorder 909532818 F41.8 stop citalopram and start wellbutrin Chronic depression 11079 0009 F32.A Essential hypertension 40618819 I10 Gastroesop hageal reflux disease without esophagitis 484034149 K21.9 Gastric ulcer 809517690 K25.9 Mixed hyperlipidemia 267 414208 E78.2 Chronic anxiety 66822321 9 F41.9 [id number] Xuan Kidd [address] [place] [address] 02/08/2024 10:30:14 02/08/2024 11:03:41 General examination of patient 738099501 Z00.00 Hyperlipid emia screening 510066793 Z13.220 Endocrine/ metabolic screening 827352525 Z13.228 Exercises education, guidance, and counseling 289835032 Z71.82 The patient was advised to continue a healthy diet and exercise regularly. Dietary ma nagement surveillance 564998271 Z71.3 Body mass index 30+ - obesity 902142310 Z68.30 Obesity 958000860 E66.9 Health Concerns Section Related Observation LastModified by Organization Detai ls LastModified Time None Recorded Concern Status LastModified by Organization Details LastModified Time None Recorded Advance Directives Directive N: Payers Insurance Date Sequence Insurance Name Policy Number Policy Daniels Covered Member ID Daniels Member ID Guarantor Name 05/23/2022 1 [place] Vince Carbone [id number] Vince Carbone 02/08/2024 1 [employer]AC[place] - HMO[place] Vince Sorensoned [id number] Vince Carbone 02/18/2024 1 [place] [id number] Vince Carbone [id number] Vince Carbone 03/19/2017 1 *SELF PAY* Alvaro Carbone 05/23/2022 1 [employer] [place] [employer] [place]ICA[place]AC[place] - [place]MO) JENNIFER Sorensoned [id number] Vince Carbone 02/08/2024 [place] [employer] [place]ICAID[place] JENNIFER Sorensoned [id number] Vince Waldrop Yasdelonte Notes Date Note Type Note Provider Name and Address Organization Details Recorded Time 1 text/html ROS as noted in the HPI Patient presents to clinic today for follow-up on anxiety. At last visit we stopped hydroxyzine and changed to buspirone. Patient states he is tolerating buspirone well and has noticed improved benefit with medication. He also would like to receive flu vaccine today. He also needs refills on multiple meds today NANDA Zacarias - [facility] 05/09/2021 16:34:06 2 text/html Emergency Department Follow-Up RecordReported by PatientROS as noted in the HPI Presented to ED for nausea and diaphoresis for past 3 weeks.Gall bladder ultrasound negative. Suspect GI ulcer - started on carafate and promethazine. Currently feeling well. No nausea, diaphoresis, shortness of breath, dizziness, lightheadedness, palpitations, chest pain, syncope or edema. No fever, chills, cough. Able to eat without issues - pain or nausea. Attempting to lose weight with Perla diet and exercising - Cardio and weight lifting (30-60 minutes 4 day per week). Reports erectile dysfunction since starting citalopram. Xuan Kidd APRN [address], [place], [id number], [facility] - [facility] 11/20/2021 16:02:28 2 text/html ROS as noted in the HPI Patient presents today for Annual Wellness. Chronic Issues Include:Chronic conditions are stable.Medications were reviewed. Patient is compliant with medications.Patient is not needing refills today. Patient is not due for colon cancer screening. Patient BMI noted and discussed. Patient blood pressure noted and discussed.PHQ 9 not completed today and was negative.Patient is up to date on vaccines.Patient is not nicotine dependent. Counseling was not provided today. Patient presents today for Annual Wellness. Chronic Issues Include:Chronic conditions are stable.Medications were reviewed. Patient is compliant with medications.Patient is not needing refills today. Patient is not due for colon cancer screening. Patient BMI noted and discussed. Patient blood pressure noted and discussed.PHQ 9 today and was .Patient is up to date on vaccines.Patient is not nicotine dependent. Counseling was not provided today. Xuan Kidd, [employer]IT [employer]NAGER [address], [place], [id number], [facility] 01/22/2022 08:41:37 2 text/html ROS as noted in the HPI Patient in for follow up and med refills. Feeling well. No chest pain, shortness of breath, dizziness, lightheadedness, syncope, palpitations or edema. No fever, chills or cough. Stopped taking citalopram 4 months ago - no issues with depression or anxiety. Has lost over 100 lbs in past year by exercising and cutting back on carbohydrate intake. Denies alcohol, tobacco or illicit drug usage. Xuan Kidd, INFORMATION SYSTEMS AUDIT MANAGER [address], [place], [id number], [facility] - [facility] 05/26/2022 14:27:07 4 text/html ROS as noted in the HPI Patient presents today for Annual Wellness. Chronic Issues Include:Chronic conditions are stable. Most recent labs/tests were reviewed.Medications were reviewed. Patient is compliant with medications.Patient is not needing refills today. Patient is not due for colon cancer screening. Patient BMI noted and discussed. Patient blood pressure noted and discussed.PHQ 9 completed today and was negative.Patient is due on vaccines.Patient is not nicotine dependent. Nicotine dependence counseling NA provided today. Presents for annual wellness examinationFeeling well.No chest pain, shortness of breath, dizziness, lightheadedness, syncope, palpitations or edema. No fever, chills or cough.Working out 3 times per week and has limited carb intakeHas lost 84 lbs in 2 yearsDenies tobacco, alcohol and illicit drug usage Xuan Kidd, INFORMATION SYSTEMS AUDIT MANAGER [address], [place], [id number], [place] - [facility] 02/08/2024 10:59:09
== END ==
LOC: SL 07:46
PROVIDERS: PCP Nurse Practitioner; Visit Provider Nurse Practitioner Family
DX: G47.33 Obstructive sleep apnea (adult) (pediatric) (principal)
CPT/HCPCS: G0399